=== PATIENT | female | born 1965 | race Caucasian/White ===

== ENCOUNTER 2018-01-23 13:30 | Emergency (ER) | payer SELFPAY ==
[2018-01-23 13:31] VITALS: BP 133/79; PULSE 87; RESP 18; TEMP 36.8; O2SAT 97; BMI 23.8
--- NOTE | 2018-01-23 14:08 | ED.DCSUM_ITS ---
- ER Visit Summary Date of Service: 01/23/18 Chief Complaint: Wound check History of Present Illness: The patient is a 52 F who presents for a wound check. She has a history of MRSA and hypothyroidism. She has noticed a rash over the past 6 days. She has multiple scabbed lesions on her arms trunk and face. She does admit that she picks at her skin. She is concerned because she has a prior history of MRSA which required surgery. She saw her primary care physician 2 days ago and was started on Bactrim. She noticed a new spot on her face today. She called the urgent care and it was advised to go to the emergency department for evaluation. Physical Examination: Afebrile vitals are normal Moist mucous membranes Heart regular rate and rhythm Lungs are clear Patient has multiple scabbed lesions which appear consistent with areas that she has been picking at her skin on her arms lower abdomen and face. I do not appreciate surrounding cellulitic changes. These are not hot to the touch there is no drainage there is no cellulitis. There is no fluctuance. There is no abscess. Test Results: Not indicated Emergency Department Course and Treatment: The patient was concerned that she did not have the rash tested for MRSA. I explained that she does not have any drainage abscess or fluctuance to obtain a culture from. At this point I do feel it is reasonable to continue her Bactrim. I would not change her antibiotics given that she has only been on them for less than 2 days. She was advised to follow-up as an outpatient. She was advised that if symptoms continue to worsen or if she develops any systemic symptoms such as fevers nausea or vomiting she should return here for reevaluation. Treatment Plan: [] Disposition: Discharge Impression: Wound check Rash This note was generated with [employer] dictation software. It may contain incorrect words, spelling, and punctuation that were not noted in review of the chart prior to signing ED Disposition - Plan for ED Patient: Chief Complaint: Cellulitis Referrals: Satya Riley DO [Primary Care Provider] -
--- NOTE | 2018-01-23 14:08 | ED.DEP ---
ED Disposition - Plan for ED Patient: Chief Complaint: Cellulitis Referrals: Satya Riley DO [Primary Care Provider] - Additional Instructions: Your current medications and follow-up with your primary care physician. If you develop fevers nausea vomiting or other new or worsening symptoms you should be reevaluated or return to the emergency department.
[2018-01-23 14:28] VITALS: PULSE 92; RESP 14; O2SAT 98
== END 2018-01-23 14:29 | disposition home or self-care (01) ==
PROVIDERS: Emergency Provider Emergency Medicine; Family Provider Student in an Organized Health Care Education/Training Program; PCP Student in an Organized Health Care Education/Training Program
DX: R21 Rash and other nonspecific skin eruption (principal); E03.9 Hypothyroidism, unspecified; Z86.14 Personal history of Methicillin resistant Staphylococcus aureus infection; Z72.0 Tobacco use; Z79.899 Other long term (current) drug therapy
CPT/HCPCS: 99282

== ENCOUNTER 2024-02-23 06:44 | Emergency (ER) | payer OTHER, BC, SELFPAY ==
[2024-02-23 06:45] VITALS: BP 144/84; PULSE 80; RESP 18; TEMP 36.8; O2SAT 97
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
[2024-02-23] MEDS: Naproxen 500 MG Tablet PO (07:08)
--- NOTE | 2024-02-23 07:08 | RAD_ITS ---
INDICATION: PAIN EXAMINATION/TECHNIQUE: X-RAY - LEFT XR Hand Min 3 Views 3 VIEWS COMPARISON: No relevant prior comparison study available FINDINGS: SOFT TISSUES: No soft tissue swelling or gas. No radiopaque foreign body. BONES/JOINTS: No acute fracture or subluxation.. Normal alignment. Preservation of the joint space.. No sclerotic or destructive changes observed. RAD/Hand Min 3 Views IMPRESSION: No evidence of acute fracture or dislocation. Electronically Signed: Cornelius Beaulieu MD at 8:32 EDT ,
--- NOTE | 2024-02-23 07:08 | RAD_ITS ---
INDICATION: PAIN EXAMINATION/TECHNIQUE: X-RAY - LEFT XR Forearm 2 Views 2 VIEWS COMPARISON: No relevant prior comparison study available FINDINGS: SOFT TISSUES: No soft tissue swelling or gas. No radiopaque foreign body. BONES/JOINTS: No acute fracture or subluxation.. Normal alignment. Preservation of the joint space.. No sclerotic or destructive changes observed. RAD/Forearm 2 Views IMPRESSION: No evidence of acute fracture or dislocation. Electronically Signed: Cornelius Beaulieu MD at 8:41 EDT ,
[2024-02-23 07:09] VITALS: BMI 23.7
[2024-02-23 08:00] VITALS: BP 118/58; PULSE 72; RESP 16; TEMP 36.6; O2SAT 99
== END 2024-02-23 08:02 | disposition home or self-care (01) ==
PROVIDERS: Emergency Provider Emergency Medicine; PCP Student in an Organized Health Care Education/Training Program; Visit Provider Emergency Medicine
DX: S40.021A Contusion of right upper arm, initial encounter (principal); F17.210 Nicotine dependence, cigarettes, uncomplicated; K21.9 Gastro-esophageal reflux disease without esophagitis; E03.9 Hypothyroidism, unspecified; Z79.899 Other long term (current) drug therapy; T74.11XA Adult physical abuse, confirmed, initial encounter; Y00.XXXA Assault by blunt object, initial encounter; Y07.010 Husband, current, perpetrator of maltreatment and neglect
CPT/HCPCS: 73090; 73130; 99282